=== PATIENT | female | born 1975 ===

== ENCOUNTER 2017-08-11 13:20 | Emergency (ER) | payer OTHER ==
[2017-08-11 13:21] VITALS: BMI 24.3
--- NOTE | 2017-08-11 14:17 | C.PDOC ---
History Of Present Illness Siobhan Sahu is a 42 year old female, with no significant past medical history, who presents to the emergency department complaining of RLQ deep pelvic pain and vaginal bleeding onset since yesterday. Patient is A0, sexually active with no contraception and states she would like to have another baby. LMP was from Jul 30 and states it seemed normal but menses is irregular. Patient reports bleeding was heavier today but not heavier than a normal period would be. She denies any other medical complaints. PMD: None provided. Time Seen by Provider: 08/11/17 13:54 Chief Complaint (Nursing): Abdominal Pain History Per: Patient History/Exam Limitations: no limitations Onset/Duration Of Symptoms: Days (x1) Current Symptoms Are (Timing): Still Present Location Of Pain/Discomfort: RLQ (deep pelvic) Associated Symptoms: Other (vaginal bleeding ) Last Menstral Period: Jul 30. : 2 Para: 2 Miscarriage: 0 Past Medical History Reviewed: Historical Data, Nursing Documentation, Vital Signs Vital Signs: Last Vital Signs Temp 98.1 F 08/11/17 13:36 Pulse 53 L 08/11/17 13:36 Resp 18 08/11/17 13:36 BP 109/70 08/11/17 13:36 Pulse Ox 99 08/11/17 15:44 - Medical History PMH: No Chronic Diseases Surgical History: Appendectomy, Cholecystectomy Family History: States: Unknown Family Hx - Social History Hx Tobacco Use: No Hx Alcohol Use: No Hx Substance Use: No - Immunization History Hx Tetanus Toxoid Vaccination: No Hx Influenza Vaccination: No Hx Pneumococcal Vaccination: No Review Of Systems Gastrointestinal: Positive for: Abdominal Pain (RLQ deep pelvic) Genitourinary: Positive for: Vaginal Bleeding Physical Exam - Physical Exam Appears: No Acute Distress Skin: Normal Color, Warm, Dry Head: Atraumatic, Normacephalic Eye(s): bilateral: Normal Inspection Neck: Normal ROM Cardiovascular: Rhythm Regular Respiratory: Normal Breath Sounds Gastrointestinal/Abdominal: Bowel Sounds, Soft, Tenderness (deep pelvis on the right side. ), No Guarding, No Rebound Back: Normal Inspection, No CVA Tenderness Extremity: Normal ROM, No Deformity, No Swelling Neurological/Psych: Oriented x3 ED Course And Treatment - Laboratory Results Result Diagrams: 08/11/17 14:13 08/11/17 14:13 Lab Interpretation: Normal Urine POC: Negative O2 Sat by Pulse Oximetry: 99 (RA) Pulse Ox Interpretation: Normal - CT Scan/US Pelvic Ultrasound Other Rad Studies (CT/US): Read By Radiologist, Radiology Report Reviewed CT/US Interpretation: Accession No. : [id number]. Patient Name / ID : CODY KIM / [id number]. Exam Date : 08/11/2017 15:15:02 ( Approved ). Study Comment : Sex / Age : F / 42Y. Creator : Geovani Davila MD. Dictator : Geovani Davila MD. Climate Change Analyst : Gelatin Powder Mixer : Geovani Davila MD. Approver2 : Report Date : 08/11/2017 15:41:13. My Comment : . HISTORY: pelvic pain. COMPARISON: None available. TECHNIQUE: Transabdominal and transvaginal. FINDINGS: UTERUS: Measures 9.3 x 4.2 x 5.0 cm. Normal in size and appearance. No fibroid or other mass lesion seen. ENDOMETRIUM: Measures 3 mm in diameter. Unremarkable. CERVIX: No cervical abnormality identified. RIGHT OVARY: Measures 2.5 x 1.3 x 2.0 cm. No solid mass. Normal flow. LEFT OVARY: Measures 3.0 x 1.7 x 2.8 cm. No solid mass. Normal flow. FREE FLUID: No significant free fluid noted. OTHER FINDINGS: None. IMPRESSION: Unremarkable pelvic ultrasound examination. Reevaluation Time: 16:20 Reassessment Condition: Improved Medical Decision Making Medical Decision Making: Initial Impression: Initial Plan: --Beta-HCG, Quantitative --CMP --Pelvis Ultrasound [US] --Reevaluation 15:41 Pelvis US FINDINGS: UTERUS: Measures 9.3 x 4.2 x 5.0 cm. Normal in size and appearance. No fibroid or other mass lesion seen. ENDOMETRIUM: Measures 3 mm in diameter. Unremarkable. CERVIX: No cervical abnormality identified. RIGHT OVARY: Measures 2.5 x 1.3 x 2.0 cm. No solid mass. Normal flow. LEFT OVARY: Measures 3.0 x 1.7 x 2.8 cm. No solid mass. Normal flow. FREE FLUID: No significant free fluid noted. OTHER FINDINGS: None. IMPRESSION: Unremarkable pelvic ultrasound examination. Disposition Counseled Patient/Family Regarding: Studies Performed, Diagnosis, Need For Followup, Rx Given - Disposition Referrals: [facility] [Outside] Disposition: HOME/ ROUTINE Disposition Time: 16:23 Condition: IMPROVED Prescriptions: Naproxen [Naprosyn] 1 tab PO BID PRN #25 tab PRN Reason: Pain Instructions: Acute Pelvic Pain Forms: [employer] (Syriac), [employer] (Greek) Print Language: HEBREW - Clinical Impression Clinical Impression: Pelvic pain - Scribe Statement Brody Zamudio
[2017-08-11 14:22] LABS: BASO # 0.1 K/uL (0.0-0.2); EOS # 0.1 K/uL (0.0-0.7); EOS % 1.1 % (0.0-4.0); HEMOGLOBIN 11.4 g/dL (11.0-16.0); LYMPH # 1.7 K/uL (1.0-4.3); LYMPH % 25.9 % (20.0-40.0); MEAN CELL VOLUME 92.8 fL (81.0-99.0); MEAN CORPUSCULAR HEMOGLOBIN 31.3 pg (27.0-31.0); MEAN CORPUSCULAR HGB CONC 33.7 g/dL (33.0-37.0); MEAN PLATELET VOLUME 9.1 fL (7.2-11.7); MONO # 0.5 K/uL (0.0-0.8); MONO % 7.7 % (0.0-10.0); NEUT # 4.1 K/uL (1.8-7.0); NEUT % 64.3 % (50.0-75.0); RBC 3.66 Mil/uL (3.80-5.20); RED CELL DISTRIBUTION WIDTH 14.6 % (11.5-14.5); WHITE BLOOD COUNT 6.4 K/uL (4.8-10.8)
[2017-08-11 14:34] LABS: ALB/GLOB RATIO 1.1 (1.0-2.1); ALBUMIN 3.9 g/dL (3.5-5.0); ALT/SGPT 31 U/L (9-52); AST/SGOT 18 U/L (14-36); BLOOD UREA NITROGEN 14 mg/dL (7-17); CALCIUM 9.1 mg/dl (8.6-10.4); GFR AFRICAN-AMERICAN > 60; GFR NON-AFRICAN AMERICAN > 60
--- NOTE | 2017-08-11 15:42 | US ---
HISTORY: pelvic pain COMPARISON: None available. TECHNIQUE: Transabdominal and transvaginal FINDINGS: UTERUS: Measures 9.3 x 4.2 x 5.0 cm. Normal in size and appearance. No fibroid or other mass lesion seen. ENDOMETRIUM: Measures 3 mm in diameter. Unremarkable. CERVIX: No cervical abnormality identified. RIGHT OVARY: Measures 2.5 x 1.3 x 2.0 cm. No solid mass. Normal flow. LEFT OVARY: Measures 3.0 x 1.7 x 2.8 cm. No solid mass. Normal flow. FREE FLUID: No significant free fluid noted. OTHER FINDINGS: None. IMPRESSION: Unremarkable pelvic ultrasound examination.
[2017-08-11 16:28] VITALS: BP 100/66; PULSE 57; RESP 20; TEMP 98.2; O2SAT 100
== END 2017-08-11 16:30 | disposition home or self-care (01) ==
LOC: C.ER 13:20
DX: R10.2 Pelvic and perineal pain (principal)